=== PATIENT | female | born 1945 | race Caucasian/White ===

== ENCOUNTER 2017-09-23 23:56 | Emergency (ER) | payer BC ==
[~2017-09-23] VITALS: Ht 170.2 cm; Wt 86.2 kg
[~2017-09-23 23:56] MED LIST: ALLEGRA ALLERGY60 M1 PO; ASPIRIN81 MG ORAL; CALCIUM500 M3 PO; FISH OIL300 M1 PO; FLAXSEED PO; LOSARTAN POTAS100 MG ORAL; NIACIN250 M1 PO; ZOCOR5 MG ORAL
[2017-09-24] MEDS ORDERED: Isovue-300 100ml vial INJ PRN (00:30)
[2017-09-24 00:37] LABS: BASOPHILS % (AUTO) 0.9 % (0.0-2.0); EOSINOPHILS % (AUTO) 3.1 % (0.0-3.0); HEMATOCRIT 41.3 % (37.0-47.0); HEMOGLOBIN 14.1 G/DL (12.0-16.0); LYMPHOCYTES % (AUTO) 31.4 % (20.0-45.0); MEAN CORPUSCULAR VOLUME 85 FL (80-99); MONOCYTES % (AUTO) 7.5 % (1.0-10.0); NEUTROPHILS % (AUTO) 57.1 % (45.0-75.0); PLATELET COUNT 344 K/UL (150-450); RED BLOOD COUNT 4.86 M/UL (4.20-5.40); RED CELL DISTRIBUTION WIDTH 11.1 % (11.6-14.8); WHITE BLOOD COUNT 8.1 K/UL (4.8-10.8)
[2017-09-24 00:52] LABS: ANION GAP 7 mmol/L (5-15); BLOOD UREA NITROGEN 24 mg/dL (7-18); CALCIUM 8.7 MG/DL (8.5-10.1); CARBON DIOXIDE 27 MMOL/L (21-32); CHLORIDE 105 MMOL/L (98-107); CREATININE 1.3 MG/DL (0.55-1.30); POTASSIUM 3.7 MMOL/L (3.5-5.1); SODIUM 139 MMOL/L (136-145)
[2017-09-24 00:56] LABS: ALANINE AMINOTRANSFERASE 28 U/L (12-78); ALBUMIN 3.4 G/DL (3.4-5.0); ALBUMIN/GLOBULIN RATIO 0.9 (1.0-2.7); ALKALINE PHOSPHATASE 96 U/L (46-116); ASPARTATE AMINO TRANSFERASE 18 U/L (15-37); BILIRUBIN,TOTAL 0.3 MG/DL (0.2-1.0)
[2017-09-24 01:06] LABS: INR 0.9 (0.9-1.1)
[2017-09-24 02:04] LABS: BILIRUBIN, URINE NEGATIVE (NEGATIVE); COLOR,URINE PALE YELLOW; GLUCOSE, URINE (UA) NEGATIVE (NEGATIVE); KETONES,URINE NEGATIVE (NEGATIVE); LEUKOCYTE ESTERASE ,URINE 2+ (NEGATIVE); NITRITE,URINE NEGATIVE (NEGATIVE); PH,URINE 5 (4.5-8.0); PROTEIN,URINE 1+ (NEGATIVE); UROBILINOGEN,URINE NORMAL MG/DL (0.0-1.0)
[2017-09-24] MEDS ORDERED: PRILOSEC OTC20 MG ORAL (02:07)
[2017-09-24 02:16] VITALS: BP 113/49
[2017-09-24 02:16] LABS: APPEARANCE,URINE SLIGHTLY CLOUDY
[2017-09-24] MEDS ORDERED: CEPHALEXIN500 MG ORAL (02:18)
[2017-09-24 02:30] VITALS: BP 113/49
[2017-09-24] MEDS ORDERED: Cephalexin 250 MG/5 ML SUSP 100ml ORAL ONE (02:30)
[2017-09-24] MEDS ORDERED: Cephalexin 500mg cap ORAL ONE (02:30)
--- NOTE | 2017-09-24 05:17 | Emergency Room Report ---
History of Present Illness General Chief Complaint: Abdominal Pain Source: Patient Present Illness [facility] The patient is a 71-year-old female who presented after increased right upper quadrant pain. Patient presented having pain intermittent leave her approximately 2 weeks. The patient reports having increased pain over the past few days. Patient prior history of gallstones. She reports she normally has epigastric pain with prior gallbladder attacks.. She denies any fever. She had not been vomiting or having any diarrhea. She denied any recent fevers. Allergies: Coded Allergies: NO KNOWN ALLERGIES (Unverified Allergy, 04/06/13) Patient History Past Medical History: see triage record Now: No Reviewed Nursing Documentation: PMH: Agreed; PSxH: Agreed Nursing Documentation-PMH Hx Hypertension: Yes - high cholesterol Hx Cancer: No Hx Neurological Problems: No Review of Systems All Other Systems: negative except mentioned in HPI Physical Exam Vital Signs Date Time Temp Pulse Resp B/P (MAP) Pulse Ox O2 Delivery O2 Flow Rate FiO2 09/24/17 00:15 97.7 55 14 151/73 98 Room Air 97.7 Sp02 EP Interpretation: reviewed, normal General Appearance: normal inspection, well appearing, no apparent distress, alert, GCS 15 Head: atraumatic ENT: normal ENT inspection, hearing grossly normal, normal voice Neck: normal inspection, full range of motion, supple, no bony tend Respiratory: normal inspection, lungs clear, normal breath sounds, no respiratory distress, no retraction, no wheezing Cardiovascular #1: regular rate, rhythm, no edema Gastrointestinal: normal inspection, normal bowel sounds, non tender, soft, no guarding, no hernia Genitourinary: no CVA tenderness Musculoskeletal: normal inspection, back normal, normal range of motion Neurologic: normal inspection, alert, responsive, speech normal Psychiatric: normal inspection, judgement/insight normal, mood/affect normal Skin: normal inspection, normal color, no rash Medical Decision Making Diagnostic Impression: Primary Impression: Cholelithiasis Additional Impression: Urinary tract infection ER Course Patient presented for abdominal pain. Differential diagnoses included ischemic bowel, appendicitis, perforated viscus, abdominal aortic aneurysm, inferior myocardial infarction, viral gastroenteritis Because of complexity of patient's case laboratory testing and imaging studies were ordered. Laboratory testing was notable unremarkable. CT the abdomen and pelvis read by radiology showed 1 mm gallstone in the gallbladder with questionable increased enhancement. The urinalysis showed evidence of urinary infection. The patient was given Keflex in the emergency department she was noted to have improvement in her symptoms. The patient given prescription for acid allison as well as pain medication. The patient was advised outpatient surgical follow-up. She is advised to have urine rechecked with primary care physician.The patient was advised to return if she began having worsening pain persistent vomiting or other concerns. Labs Test 09/24/17 00:20 09/24/17 01:40 White Blood Count 8.1 K/UL (4.8-10.8) Red Blood Count 4.86 M/UL (4.20-5.40) Hemoglobin 14.1 G/DL (12.0-16.0) Hematocrit 41.3 % (37.0-47.0) Mean Corpuscular Volume 85 FL (80-99) Mean Corpuscular Hemoglobin 29.0 PG (27.0-31.0) Mean Corpuscular Hemoglobin Concent 34.2 G/DL (32.0-36.0) Red Cell Distribution Width 11.1 % (11.6-14.8) Platelet Count 344 K/UL (150-450) Mean Platelet Volume 5.7 FL (6.5-10.1) Neutrophils (%) (Auto) 57.1 % (45.0-75.0) Lymphocytes (%) (Auto) 31.4 % (20.0-45.0) Monocytes (%) (Auto) 7.5 % (1.0-10.0) Eosinophils (%) (Auto) 3.1 % (0.0-3.0) Basophils (%) (Auto) 0.9 % (0.0-2.0) Prothrombin Time 9.8 SEC (9.30-11.50) Prothromb Time International Ratio 0.9 (0.9-1.1) Activated Partial Thromboplast Time 30 SEC (23-33) Sodium Level 139 MMOL/L (136-145) Potassium Level 3.7 MMOL/L (3.5-5.1) Chloride Level 105 MMOL/L (98-107) Carbon Dioxide Level 27 MMOL/L (21-32) Anion Gap 7 mmol/L (5-15) Blood Urea Nitrogen 24 mg/dL (7-18) Creatinine 1.3 MG/DL (0.55-1.30) Estimat Glomerular Filtration Rate 40.6 mL/min (>60) Glucose Level 124 MG/DL (74-106) Calcium Level 8.7 MG/DL (8.5-10.1) Total Bilirubin 0.3 MG/DL (0.2-1.0) Aspartate Amino Transf (AST/SGOT) 18 U/L (15-37) Alanine Aminotransferase (ALT/SGPT) 28 U/L (12-78) Alkaline Phosphatase 96 U/L (46-116) Total Protein 7.3 G/DL (6.4-8.2) Albumin 3.4 G/DL (3.4-5.0) Globulin 3.9 g/dL Albumin/Globulin Ratio 0.9 (1.0-2.7) Lipase 229 U/L (73-393) Urine Color Pale yellow Urine Appearance Slightly cloudy Urine pH 5 (4.5-8.0) Urine Specific [place] 1.010 (1.005-1.035) Urine Protein 1+ (NEGATIVE) Urine Glucose (UA) Negative (NEGATIVE) Urine Ketones Negative (NEGATIVE) Urine Occult Blood Negative (NEGATIVE) Urine Nitrite Negative (NEGATIVE) Urine Bilirubin Negative (NEGATIVE) Urine Urobilinogen Normal MG/DL (0.0-1.0) Urine Leukocyte Esterase 2+ (NEGATIVE) Urine RBC 2-4 /HPF (0 - 2) Urine WBC Tntc /HPF (0 - 2) Urine Squamous Epithelial Cells Many /LPF (NONE/OCC) Urine Bacteria Many /HPF (NONE) Urine Yeast Few /HPF (NONE) Last Vital Signs Date Time Temp Pulse Resp B/P (MAP) Pulse Ox O2 Delivery O2 Flow Rate FiO2 09/24/17 02:30 97.8 54 16 113/49 96 Room Air 97.8 Status: improved Disposition: HOME, SELF-CARE Condition: Stable Scripts Cephalexin* (KEFLEX*) 500 Mg Capsule 500 MG ORAL EVERY 6 HOURS, #40 CAP Prov: Huseyin Coffman MD 09/24/17 Omeprazole Magnesium (PRILOSEC OTC) 20 Mg Tablet. 20 MG ORAL DAILY, #28 TAB Prov: Huseyin Coffman MD 09/24/17 Referrals: NOT CHOSEN IPA/MD,REFERRING Patient Instructions: Abdominal Pain, Adult Huseyin Coffman MD Sep 24, 2017 05:17
--- NOTE | 2017-09-24 09:20 | Diagnostic Imaging Report ---
Clinical Indication: Abdominal pain for 3 weeks Technique: No oral contrast utilized, per emergency room physician request IV administration nonionic contrast. Venous phase spiral acquisition obtained through the abdomen and pelvis. Multiplanar reconstructions were generated. Total dose length product 952.3 mGycm. CTDIvol(s) 17.93 mGy. Dose reduction achieved using automated exposure control Comparison: none Findings: The appendix is normal. There are colonic diverticula. No evidence of diverticulitis. No small bowel distention. No free or loculated intraperitoneal gas or fluid. The appendix demonstrates gallstones. The gallbladder wall appears somewhat edematous. The extrahepatic bile ducts dilated, measuring up to 12 mm in diameter. No definite downstream obstructive lesion demonstrated.. The liver is unremarkable. The pancreas, spleen, adrenals, left kidney are all unremarkable. Subcentimeter low-attenuation lesion is seen in the right kidney, too small to characterize No retroperitoneal or mesenteric mass or adenopathy. No pelvic mass or adenopathy. Uterus and adnexal structures are unremarkable. The included lung bases are clear. There are degenerative changes of the lumbar spine. There is slight anterior wedge deformity of the lower thoracic vertebral segments which appears more likely developmental than posttraumatic. Impression: Cholelithiasis. Gallbladder wall thickening raises possibility of acute cholecystitis, although gallbladder is nondistended. Consider hepatobiliary nuclear scan for further evaluation. Mild extrahepatic biliary ductal dilatation. Review of the medical record indicates normal liver function tests; suspect on the basis of senescent change and correlation with clinical findings is recommended Colonic diverticulosis. No evidence of diverticulitis Subcentimeter low-attenuation right renal lesion, too small to characterize, most likely benign simple cortical cysts. No further follow-up necessary Degenerative lumbar spondylosis This agrees with the preliminary interpretation provided overnight by [facility] teleradiology service. The CT scanner at [facility] is accredited by the [employer] and the scans are performed using protocols designed to limit radiation exposure to as low as reasonably achievable to attain images of sufficient resolution adequate for diagnostic evaluation.
--- NOTE | 2017-10-01 00:54 | Cardiology Report ---
APPROVED REPORT EKG Measurement Heart [id number] Sinus bradycardia Low voltage QRS Borderline ECG
== END 2017-09-24 02:30 | disposition home or self-care (01) ==
LOC: EMR 09-24 00:53
DX: K80.20 Calculus of gallbladder without cholecystitis without obstruction (principal); N39.0 Urinary tract infection, site not specified
CPT/HCPCS: 36415; 74177; 80053; 81003; 83690; 85025; 85610; 85730; 87086; 93005; 96361; 96374; 96375; 99284; J2405; Q9967; S0028